=== PATIENT | female | born 1970 | race Caucasian/White ===

== ENCOUNTER → 2024-08-11 | Outpatient (CLI) | payer OTHER | END | disposition home or self-care (01) | LOC: SHCH 14:16 | PROVIDERS: ATTEND Student in an Organized Health Care Education/Training Program | DX: R94.31 Abnormal electrocardiogram [ECG] [EKG] (principal) | CPT/HCPCS: 93306 ==

== ENCOUNTER → 2024-09-15 | Outpatient (CLI) | payer OTHER | END | disposition home or self-care (01) | LOC: RAH 11:55 | PROVIDERS: ATTEND Family Medicine | DX: M41.84 Other forms of scoliosis, thoracic region (principal); M43.8X6 Other specified deforming dorsopathies, lumbar region; M41.9 Scoliosis, unspecified | CPT/HCPCS: 72081 ==

== ENCOUNTER → 2024-09-22 | Outpatient (CLI) | payer OTHER ==
--- NOTE | 2024-09-23 09:37 | HMCIMG ---
PROCEDURE: MAMMO DX UNILATERAL LEFT, US BREAST COMPLETE UNILATERAL HISTORY: Follow-up COMPARISON: 04/08/2024 TECHNIQUE: Left breast digital diagnostic mammogram with CAD was performed. Additional magnification views were obtained. Left breast ultrasound study was performed. FINDINGS: The breasts are heterogeneously dense, which may obscure small masses. Note is again made of questionable subtle cluster of microcalcifications in the upper aspect of the left breast. Six-month follow-up study with mammogram is recommended. There is no other evidence of a dominant mass, or suspicious microcalcification. There is no evidence of nipple retraction or skin thickening. [Ultrasound study shows left axillary lymph node measuring 15 mm and 2.3 cm each. No evidence of cystic or hypoechoic mass is seen. IMPRESSION: 1. Subtle stable cluster of microcalcifications in the upper aspect of the left breast only seen on the mediolateral oblique view. Continuing six-month follow-up study with bilateral mammogram is recommended. Ultrasound shows no evidence of hypoechoic mass. BI-RADS: CATEGORY 3: PROBABLE BENIGN-SHORT INTERVAL FOLLOWUP SUGGESTED Recommend monthly self breast exam as well as annual clinical examination. A negative x-ray should not delay biopsy if a dominant or clinically suspicious mass is present, since 8-10% of cancers are not identified by mammography. Dense breasts particularly, may obscure an underlying neoplasm. Some of these may be detected clinically and therefore, clinical examination is an essential part of breast evaluation.
== END | disposition home or self-care (01) ==
LOC: RAH 13:05
PROVIDERS: ATTEND Family Medicine
DX: R92.0 Mammographic microcalcification found on diagnostic imaging of breast (principal); R92.332 Mammographic heterogeneous density, left breast; R92.8 Other abnormal and inconclusive findings on diagnostic imaging of breast
CPT/HCPCS: 76641; 77065

== ENCOUNTER → 2025-04-13 | Outpatient (CLI) | payer OTHER ==
--- NOTE | 2025-04-14 09:29 | HMCIMG ---
PROCEDURE: MAMMO DX BILATERAL HISTORY: Microcalcification COMPARISON: 09/22/2024 TECHNIQUE: Bilateral digital diagnostic mammogram with CAD was performed. Magnification of left breast were obtained. FINDINGS: The breasts are extremely dense which lowers the sensitivity of mammogram. Previously described microcalcifications in the left breast are again seen unchanged. There is no evidence of a dominant mass, or suspicious microcalcification. There is no evidence of nipple retraction or skin thickening. IMPRESSION: 1. Previously described microcalcifications in the left breast are again seen unchanged. This is most likely benign finding. Six-month follow-up study is recommended. BI-RADS: CATEGORY 3: PROBABLE BENIGN-SHORT INTERVAL FOLLOWUP SUGGESTED Recommend monthly self breast exam as well as annual clinical examination. A negative x-ray should not delay biopsy if a dominant or clinically suspicious mass is present, since 8-10% of cancers are not identified by mammography. Dense breasts particularly, may obscure an underlying neoplasm. Some of these may be detected clinically and therefore, clinical examination is an essential part of breast evaluation.
== END | disposition home or self-care (01) ==
LOC: RAH 13:34
PROVIDERS: ATTEND Family Medicine
DX: R92.0 Mammographic microcalcification found on diagnostic imaging of breast (principal); R92.343 Mammographic extreme density, bilateral breasts
CPT/HCPCS: 77066

== ENCOUNTER → 2025-05-19 | Outpatient (CLI) | payer OTHER ==
--- NOTE | 2025-05-20 10:59 | HMCIMG ---
EXAMINATION: COMPLETE TRANSVAGINAL ULTRASOUND OF PELVIS. CLINICAL HISTORY: Left lower quadrant pain. COMPARISON: Transabdominal scan done from the same day. TECHNIQUE: Multiple real-time grayscale images of the pelvis were obtained. In addition, color Doppler is medically necessary to perform to assess for vascularity and blood flow. FINDINGS: The uterus is anteverted, normal in caliber and measures 9.4 x 4.7 x 5.4 cm in the craniocaudal, AP, and transverse dimensions respectively. There is an intramural fibroid that measures 1.2 x 1.1 x 1.1 cm at the fundus. The endometrium measures approximately 1.0 cm. Cervix appears normal. The right ovary is normal in caliber and measures 3.7 x 1.5 x 2.2 cm. The left ovary is normal in caliber and measures 2.9 x 1.7 x 2.8 cm There is trace free fluid in the cul-de-sac. IMPRESSION: Uterine fibroid. Trace free fluid in the cul-de-sac. /[place]
--- NOTE | 2025-05-20 10:59 | HMCIMG ---
EXAMINATION: COMPLETE TRANSABDOMINAL ULTRASOUND OF PELVIS. CLINICAL HISTORY: Left lower quadrant pain. COMPARISON: Transvaginal scan done from the same day. TECHNIQUE: Multiple real-time grayscale images of the pelvis were obtained. In addition, color Doppler is medically necessary to perform to assess for vascularity and blood flow. FINDINGS: The uterus is anteverted, normal in caliber and measures 9.4 x 4.4 x 5.5 cm in the craniocaudal, AP, and transverse dimensions respectively. The endometrium measures approximately 0.8 cm. Cervix appears normal. The right ovary is normal in caliber and measures 4.0 x 2.4 x 2.3 cm. (PSV is 25 cm/s). The left ovary is normal in caliber and measures 2.7 x 2.3 x 2.7 cm. There is no free fluid in the cul-de-sac. IMPRESSION: No significant abnormality. /[place]
== END | disposition home or self-care (01) ==
LOC: RAH 10:33
PROVIDERS: ATTEND Family Medicine
DX: D25.1 Intramural leiomyoma of uterus (principal); N85.4 Malposition of uterus; L68.0 Hirsutism; R10.32 Left lower quadrant pain
CPT/HCPCS: 76830; 76856

== ENCOUNTER 2025-07-09 07:28 | Day surgery (SDC) | payer OTHER ==
[2025-07-08 13:14] LABS: IMMATURE GRANULOCYTE ABSOLUTE 0.01 K/uL (0-1); NUCLEATED RED BLOOD CELLS 0.0 % (0.0-0.19); PLATELET COUNT (AUTO) 266 K/uL (130-400); RED BLOOD CELL COUNT(AUTO) 4.80 MIL/uL (4.00-5.50); RED CELL DISTRIBUTION WIDTH 12.1 % (11.0-15.5); WHITE BLOOD COUNT (AUTO) 6.1 K/uL (4.8-10.8)
[2025-07-08 13:23] LABS: CREATININE 0.7 mg/dL (0.5-1.0); GLOMERULAR FILTR. RATE CALC 103.0 mL/min (>90); GLUCOSE,RANDOM 82.0 mg/dL (70-105); SODIUM SERUM 138.0 mmol/L (136-145); UREA NITROGEN, BLOOD 16.0 mg/dL (7-18)
[2025-07-08 13:25] LABS: INR 1.01 (0.85-1.15)
[2025-07-08 13:31] VITALS: BP 105/58; PULSE 72; RESP 16; TEMP 98.2
[2025-07-09] VITALS (13 sets, daily range): BP systolic 99–123; BP diastolic 46–62; PULSE 49–68; RESP 14–16; TEMP 97.4–97.8
[~2025-07-09] VITALS: Ht 168.9 cm; Wt 67.6 kg
[~2025-07-09 07:28] MED LIST: ACET-2743 PO; DOCU-116 PO; ESTR1TAB17 PO; FAMOTIDINE 20MG VIAL IV ONE; LIDOCAINE PF 100MG/5ML (2%) SYRINGE 5ML ONE; MVI PO; PROGESTERONE VG; TIRZ5VIA SQ
[2025-07-09] MEDS ORDERED: TRAM100C3 PO (08:19)
[2025-07-09] MEDS: LACTATED RINGERS 1000ML 1,000 ML IV ONE (09:41)
--- NOTE | 2025-07-09 09:55 | NUR ---
BOTH PT AND SPOUSE GIVEN VERBAL AND WRITTEN DISCHARGE INSTRUCTIONS. IV REMOVED SITE ASYMPTOMATIC. PT TAKEN OUT VIA WHEELCHAIR DRIVING
--- NOTE | 2025-07-09 09:58 | OP ---
Operative Note: DATE OF PROCEDURE: 07/09/25 SURGEON: GABBI IVROY MD FLUME MAKER: Yvonne Velásquez ANESTHESIA: General ANESTHESIOLOGIST/MORTGAGE PROTECTION SPECIALIST: Aida Moyer PREOPERATIVE DIAGNOSIS: Right carpal tunnel syndrome POSTOPERATIVE DIAGNOSIS: Right carpal tunnel syndrome PROCEDURE: Right carpal tunnel release ESTIMATED BLOOD LOSS: None INDICATIONS: 54-year-old female with bilateral upper extremity and numbness consistent with carpal tunnel syndrome of the right and possible carpal and cubital tunnel syndrome on the left. She electrodiagnostic evidence showing bilateral carpal tunnel syndrome. After discussion of the risks, benefits, and alternatives, she voluntarily agreed to undergo the aforementioned procedure. DESCRIPTION OF PROCEDURE: Patient was properly identified in the preoperative holding area. Surgical site marking was verified and surgery consent reviewed. The patient was then taken to the operating room and placed in supine position on the OR table. After induction of general anesthesia, preoperative antibiotics were given, all bony prominences were well-padded, and a well padded tourniquet was applied but not inflated at this time. The right upper extremity was then prepped and draped in usual sterile fashion. Surgical timeout was done verifying correct surgery, side, site, and location to be performed. We then began the procedure by exsanguinating the arm using an Esmarch and inflating a tourniquet to 250 mmHg. We made an approximately 2 cm long incision at the ulnar border of the fourth digit, when flexed, on the midpalmar longitudinal crease. Here we came down sharply through the subcutaneous tissue and using a self retaining retractor as well as ragnelles we could visualize the deep tissue. We then identified the transverse carpal ligament and began to come through this a little bit at a time using a 15 blade with small amounts of pressure being applied. The ligament was then released. We directed our attention proximally where we spread above and below the remaining portion of the transverse carpal ligament to break up any adhesions and using a pair of Metzenbaum scissors we slid proximally and transected and the remaining proximal portion of the transverse carpal ligament. Distally, we placed our retractors to help a show the distal extent of the transverse carpal ligament, and we came through this carefully using a 15 blade until we identified the fat surrounding the palmar arch. We used a Colton elevator palpating both the proximal and distal directions to ensure the entire transverse carpal ligament had been released. We then thoroughly irrigated out this wound with normal saline and injected the surrounding tissue with half percent Marcaine plain. The wound was then closed with 3-0 nylon interrupted simple suture pattern. Soft sterile dressing was applied with Xeroform, 4 x 4's, and Coban. The tourniquet was then deflated. The patient was awakened from anesthesia. There were taken to the recovery room in stable condition. GABBI IVORY MD Jul 09, 2025 09:58
== END 2025-07-09 10:05 | disposition home or self-care (01) ==
LOC: DAH 07:28
PROVIDERS: ATTEND Student in an Organized Health Care Education/Training Program
DX: G56.03 Carpal tunnel syndrome, bilateral upper limbs (principal); G56.22 Lesion of ulnar nerve, left upper limb; Z79.01 Long term (current) use of anticoagulants; Z79.899 Other long term (current) drug therapy
CPT/HCPCS: 80048; 84703; 85025; 85610; 85730; 36415; 64721; A6260; A4663; J7120; J3490; J3010; J2003; J2704; J0665 ×2; J0690 ×2; A6223; A4649; A4930; A4215; A4223; A4222; A4221; A4600

== ENCOUNTER → 2025-11-01 | Outpatient (CLI) | payer OTHER ==
[~2025-11-01] MED LIST changes: -FAMOTIDINE 20MG VIAL IV ONE; -LIDOCAINE PF 100MG/5ML (2%) SYRINGE 5ML ONE; +TRAM100C3 PO
--- NOTE | 2025-11-03 10:33 | HMCIMG ---
DIGITAL left breast DIAGNOSTIC MAMMOGRAM WITH TOMOSYNTHESIS, DATED 11/01/2025 12:00 AM RIVER TESTER Technique: The digital mammographic examination of left breast in craniocaudal and mediolateral oblique views along with CAD was obtained. Tomosynthesis of left breast was obtained. History: This is a 55 years year-old female 2, para 2 Ab 0 for 3D Diagnostic mammogram. Patient has no family history of breast cancer. Patient is here for follow-up for microcalcification in the left breast. Reference:Prior mammogram from 04/13/2025, 09/22/2024 and 04/08/2024 is available. Breast composition: Breast composition D: The breasts are extremely dense, which lowers the sensitivity of mammography. Finding: The digital mammographic examination of left breast in craniocaudal and mediolateral oblique view along with CAD demonstrates mildly dense. There is a cluster of small microcalcification the left breast which appears to be stable and unchanged.. There is no evidence of any dendritic mass, cluster microcalcification or architectural distortion. The Tomosynthesis demonstrates no lesion seen. The retromammary fat appears to be normal. IMPRESSION: Left breast microcalcification appears to be stable and unchanged. I would recommend a six-month follow-up a total of 2 years. Mammogram patient is to have a bilateral mammography with tomography.. FINAL ASSESSMENT: ACR: BI-RAD -3. Probably Benign - Short Interval Followup Suggested. NOTE: IF A WORK-UP OF THIS PATIENT LEADS TO A BIOPSY, PLEASE FORWARD A COPY OF THE PATHOLOGY REPORT TO OUR OFFICE REQUIRED BY [facility] EFFECTIVE AUGUST 18, 1994. A NEGATIVE MAMMOGRAM SHOULD NOT PRECLUDE BIOPSY OF A CLINICALLY PALPABLE SUSPICIOUS MASS, 10% OF BREAST CANCERS ARE MAMMOGRAPHICALLY OCCULT. THIS MAMMOGRAPHY FACILITY IS FULLY ACCREDITED BY THE FOOD AND DRUG ADMINISTRATION (FDA). THANK YOU FOR THIS REFERRAL.
== END | disposition home or self-care (01) ==
LOC: RAH 15:02
PROVIDERS: ATTEND Family Medicine
DX: R92.343 Mammographic extreme density, bilateral breasts (principal); R92.0 Mammographic microcalcification found on diagnostic imaging of breast
CPT/HCPCS: 77061; 77062; 77065